=== PATIENT | female | born 1940 | race African-American/Black ===

== ENCOUNTER → 2020-02-19 | Outpatient (CLI) | payer MEDICARE, MEDICAID ==
[~2020-02-19] MED LIST: ASPI-956 PO; ASPI-986 PO; BALS750C6 PO; BENA10TA74 PO; CALC500T62 PO; CHOL200077 PO; CLOB15CR5 TP; EZET10TA13 PO; FAMO20TA8 PO; GARL600T2 PO; MECL25TA3 PO; METF500T3 PO; OMEG1CAP66 PO; OMEP20CA14 PO; POTA10TA19 PO; TRIA1POW10 MC; TURM538C PO; VITA400T9 PO; [UNRECOGNIZED DRUG - CODE] TP
== END | disposition home or self-care (01) ==
LOC: LAB 08:00
PROVIDERS: ATTEND Orthopaedic Surgery
DX: Z03.818 Encounter for observation for suspected exposure to other biological agents ruled out (principal)
CPT/HCPCS: U0003-CS

== ENCOUNTER 2020-02-21 05:19 | Day surgery (SDC) | payer MEDICARE, MEDICAID ==
[~2020-02-21] VITALS: Ht 162.6 cm; Wt 72.6 kg
[~2020-02-21 05:19] MED LIST changes: -ASPI-986 PO; -BALS750C6 PO; -CHOL200077 PO; -FAMO20TA8 PO; -GARL600T2 PO; -OMEG1CAP66 PO; -TURM538C PO; -VITA400T9 PO
[2020-02-21] MEDS ORDERED: LACTATED RINGERS 1,000 ML IV SCH (06:30)
[2020-02-21] MEDS ORDERED: BUPIVACAINE HCL/PF 0.25% (2.5MG/ML) 10ML ONE (06:42)
[2020-02-21] MEDS ORDERED: BACITRACIN 50,000 UNITS/VIAL ONE (06:42)
[2020-02-21 06:45] LABS: INR 1.1; PARTIAL THROMBOPLASTIN TIME 27.5 sec (23.4-31.0); PROTHROMBIN TIME 11.9 sec (9.6-11.0)
[2020-02-21] MEDS ORDERED: VANCOMYCIN HCL 1 GM/VIAL ONE (07:14)
[2020-02-21] MEDS ORDERED: CLINDAMYCIN 900 MG PREMIX 50 ML IV ONE (07:45)
[2020-02-21] MEDS ORDERED: PROPOFOL 200MG/20ML VIAL IV ONE (07:46)
[2020-02-21] MEDS ORDERED: GLYCOPYRROLATE 0.2 MG/ML 2ML VIAL ONE (07:46)
[2020-02-21] MEDS ORDERED: MIDAZOLAM HCL 2 MG/2 ML VIAL ONE (07:46)
[2020-02-21] MEDS ORDERED: METOCLOPRAMIDE HCL 10MG/2ML VIAL ONE (07:46)
[2020-02-21] MEDS ORDERED: FENTANYL CITRATE/PF 50MCG/ML 2ML VIAL ONE (07:46)
[2020-02-21] MEDS ORDERED: LIDOCAINE HCL/PF 1% 10 MG/ML 5ML VIAL ONE (07:46)
[2020-02-21] MEDS ORDERED: ONDANSETRON HCL 4MG/2ML INJ ONE (07:46)
[2020-02-21] MEDS ORDERED: SUCCINYLCHOLINE CHLORIDE 200MG/10ML IV ONE (07:46)
[2020-02-21] MEDS ORDERED: SODIUM CHLORIDE 0.9% 1,000 ML IV ONE (08:33)
[2020-02-21] MEDS ORDERED: ONDANSETRON HCL 4MG/2ML INJ IV PRN (08:45)
[2020-02-21] MEDS ORDERED: HYDROMORPHONE HCL/PF 2MG/ML CPJ IV PRN (08:45)
[2020-02-21] MEDS ORDERED: MEPERIDINE HCL/PF 25MG/ML CPJ IV PRN (08:45)
[2020-02-21] MEDS ORDERED: MORPHINE SULFATE 2 MG/ML CPJ (NOT FOR IM USE) IV PRN (08:45)
[2020-02-21] MEDS ORDERED: HYDROCODONE/ACETAMINOPHEN 5/325MG TABLET PO PRN (09:30)
[2020-02-21] MEDS ORDERED: ASPI-986 PO (09:54)
[2020-02-21 09:57] VITALS: BP 128/61
[2020-02-21] MEDS ORDERED: BALS750C6 PO (10:02)
[2020-02-21] MEDS ORDERED: FAMO20TA8 PO (10:04)
[2020-02-21] MEDS ORDERED: CHOL200077 PO (10:09)
[2020-02-21] MEDS ORDERED: GARL600T2 PO (10:09)
[2020-02-21] MEDS ORDERED: OMEG1CAP66 PO (10:10)
[2020-02-21] MEDS ORDERED: VITA400T9 PO (10:10)
[2020-02-21] MEDS ORDERED: TURM538C PO (10:10)
== END 2020-02-21 12:00 | disposition home or self-care (01) ==
LOC: OR 05:19
PROVIDERS: ATTEND Orthopaedic Surgery
DX: G56.02 Carpal tunnel syndrome, left upper limb (principal); M65.322 Trigger finger, left index finger; G89.29 Other chronic pain; R53.1 Weakness; R20.2 Paresthesia of skin; I10 Essential (primary) hypertension; E11.9 Type 2 diabetes mellitus without complications; E78.5 Hyperlipidemia, unspecified; Z88.0 Allergy status to penicillin; Z88.2 Allergy status to sulfonamides; Z79.82 Long term (current) use of aspirin; Z79.84 Long term (current) use of oral hypoglycemic drugs; Z79.899 Other long term (current) drug therapy; Z98.890 Other specified postprocedural states
CPT/HCPCS: 26055; 36415; 64721; 82962; 85610; 85730; 93005; J2250; J2270; J2405; J2704; J2765; J3010; J3370; J3490; J0330

== ENCOUNTER 2021-06-27 13:44 | Inpatient (IN) | payer MEDICARE, MEDICAID ==
[~2021-06-27] VITALS: Ht 163.8 cm; Wt 74.4 kg
[~2021-06-27 13:44] MED LIST changes: -ASPI-956 PO; +ASPI-986 PO; +BALS750C6 PO; +CHOL200077 PO; +FAMO20TA8 PO; +GARL600T2 PO; +OMEG1CAP66 PO; -OMEP20CA14 PO; -POTA10TA19 PO; -TRIA1POW10 MC; +TURM538C PO; +VITA400T9 PO
[2021-06-27] MEDS ORDERED: MECLIZINE 25MG TABLET PO ONE (18:30)
[2021-06-27 20:17] LABS: BASOPHILS % 0.2 % (0.0-2.0); EOSINOPHILS % 0.5 % (0.0-5.0); HEMATOCRIT. 36.8 % (36.0-48.0); HEMOGLOBIN. 12.2 g/dL (12.0-16.0); LYMPHOCYTES % 28.8 % (20.0-50.0); MEAN CORPUSCULAR HEMOGLOBIN 28.1 pg (28.0-32.0); MEAN CORPUSCULAR VOLUME 84.9 fL (81.0-99.0); MEAN PLATELET VOLUME 8.3 fl (7.4-10.4); MONOCYTES % 7.5 % (2.0-8.0); PLATELET 202 x1000/uL (130-400); RED BLOOD CELL COUNT 4.33 mill/uL (4.2-5.4); RED CELL DISTRIBUTION WIDTH 16.1 % (11.6-14.6)
[2021-06-27 20:18] LABS: CHLORIDE 108 mEq/L (98-107)
[2021-06-27 20:20] LABS: INR 1.1; PROTHROMBIN TIME 12.1 sec (9.6-11.0)
[2021-06-27 20:25] LABS: LDL CHOLESTEROL 143 mg/dL (5-100)
[2021-06-27] MEDS ORDERED: ASPIRIN 81MG TABLET PO SCH (20:30)
[2021-06-27] MEDS ORDERED: LABETALOL HCL 20MG/4ML CARPUJECT IV PRN (20:30)
[2021-06-27] MEDS ORDERED: ACETAMINOPHEN 650MG/20.3ML UDC GT PRN (20:30)
[2021-06-27] MEDS ORDERED: MECLIZINE 12.5MG TABLET PO PRN (20:45)
[2021-06-27 20:57] LABS: CLARITY URINE CLEAR (CLEAR); COLOR URINE YELLOW (YELLOW); KETONES URINE NEGATIVE (NEGATIVE); LEUKOCYTE ESTERASE URINE 1+ (NEGATIVE); NITRITE URINE NEGATIVE (NEGATIVE); OCCULT BLOOD URINE NEGATIVE (NEGATIVE); PH URINE 6.5 (4.5-8.0); PROTEIN URINE NEGATIVE (NEGATIVE); SPECIFIC GRAVITY URINE 1.009 (1.005-1.030); UROBILINOGEN URINE 0.2 E.U./dL (0.2-1.0)
[2021-06-27] MEDS: ATORVASTATIN CALCIUM 20MG TABLET PO SCH (21:00)
[2021-06-27 21:29] LABS: VITAMIN B12 SERUM 1959 pg/mL (211-911)
[2021-06-27] MEDS ORDERED: ASPIRIN 325MG EC TABLET PO NR (23:33)
[2021-06-28] VITALS (7 sets, daily range): BP systolic 132–150; BP diastolic 59–72
[2021-06-28] MEDS ORDERED: AMLO10TA80 PO (03:16)
[2021-06-28] MEDS ORDERED: MAGN250T29 PO (03:25)
[2021-06-28] MEDS ORDERED: CYCL10TA7 PO (03:25)
[2021-06-28] MEDS ORDERED: DOCU-150 PO (03:25)
[2021-06-28 06:53] LABS: HEMATOCRIT 38.7 % (36.0-48.0); HEMOGLOBIN 12.5 g/dL (12.0-16.0); MEAN CORPUSCULAR HEMOGLOBIN 27.8 pg (28.0-32.0); MEAN CORPUSCULAR VOLUME 86.2 fL (81.0-99.0); PLATELET 194 x1000/uL (130-400); RED BLOOD CELL COUNT 4.49 mill/uL (4.2-5.4)
[2021-06-28 07:46] LABS: CHLORIDE 109 mEq/L (98-107)
[2021-06-28 07:54] LABS: TOTAL IRON BINDING CAPACITY 352 ug/dL (250-450)
[2021-06-28] MEDS: ASPIRIN 81MG TABLET PO SCH (08:06)
[2021-06-28 08:17] LABS: FOLIC ACID (FOLATE) SERUM > 20.00 ng/mL (>5.38)
[2021-06-28] MEDS: ENOXAPARIN 40MG/0.4ML SYR SUBCUT SCH (21:00)
[2021-06-28] MEDS: ATORVASTATIN CALCIUM 20MG TABLET PO SCH (21:00)
[2021-06-28] MEDS: AMLODIPINE 5MG TABLET PO SCH (21:37)
[2021-06-29] VITALS: BP 127/59
[2021-06-29 04:00] VITALS: BP 130/58
[2021-06-29 08:00] VITALS: BP 139/59
[2021-06-29] MEDS: IRON SUCROSE COMPLEX 100 MG/5 ML ML IV SCH (09:46)
[2021-06-29] MEDS: ASPIRIN 81MG TABLET PO SCH (09:46)
[2021-06-29] MEDS: AMLODIPINE 5MG TABLET PO SCH ×2 (09:46→20:51)
[2021-06-29] MEDS: FAMOTIDINE 20MG TABLET PO SCH ×2 (09:46→17:26)
[2021-06-29 12:00] VITALS: BP_SYST 118; BP_SYST 125; BP_DIAS 53; BP_DIAS 67
[2021-06-29 16:00] VITALS: BP 133/63
[2021-06-29 20:00] VITALS: BP 154/60
[2021-06-29] MEDS: ATORVASTATIN CALCIUM 20MG TABLET PO SCH (20:51)
[2021-06-29] MEDS: ENOXAPARIN 40MG/0.4ML SYR SUBCUT SCH (20:52)
[2021-06-30] VITALS: BP 146/64
[2021-06-30 04:00] VITALS: BP_SYST 146; BP_SYST 153; BP_SYST 157; BP_DIAS 73; BP_DIAS 75; BP_DIAS 79
[2021-06-30 08:00] VITALS: BP_SYST 125; BP_SYST 132; BP_SYST 140; BP_DIAS 61; BP_DIAS 65; BP_DIAS 70
[2021-06-30] MEDS: IRON SUCROSE COMPLEX 100 MG/5 ML ML IV SCH (08:50)
[2021-06-30] MEDS: ASPIRIN 81MG TABLET PO SCH (08:50)
[2021-06-30] MEDS: FAMOTIDINE 20MG TABLET PO SCH ×2 (08:50→17:00)
[2021-06-30] MEDS: AMLODIPINE 5MG TABLET PO SCH (08:51)
[2021-06-30 12:00] VITALS: BP 124/57
[2021-06-30 15:30] VITALS: BP 124/57
[2021-06-30] MEDS ORDERED: AMLO5TAB88 PO (15:38)
[2021-06-30] MEDS ORDERED: AMLO5TAB88 MT (15:40)
[2021-06-30 16:00] VITALS: BP 117/53
== END 2021-06-30 17:00 | disposition home or self-care (01) | DRG 312 ==
LOC: ER 13:44 → 7EST 20:13 → EDBEDREQ 20:15 → EDBEDREQSVC 20:15 → EDBEDREQTM 20:15 → ENRESERV 23:35
PROVIDERS: ADMIT Family Medicine Adult Medicine; ATTEND Family Medicine Adult Medicine
DX: I95.2 Hypotension due to drugs (principal); D50.9 Iron deficiency anemia, unspecified; H91.91 Unspecified hearing loss, right ear; I10 Essential (primary) hypertension; R00.0 Tachycardia, unspecified; T50.905A Adverse effect of unspecified drugs, medicaments and biological substances, initial encounter; Z86.73 Personal history of transient ischemic attack (TIA), and cerebral infarction without residual deficits; Z88.0 Allergy status to penicillin; Z88.2 Allergy status to sulfonamides; Y92.098 Other place in other non-institutional residence as the place of occurrence of the external cause; Z87.19 Personal history of other diseases of the digestive system; Z86.69 Personal history of other diseases of the nervous system and sense organs
CPT/HCPCS: 36415; 70551; 71045; 80048; 80053; 80076; 81003; 82607; 82746; 83036; 83540; 83550; 83721; 83880; 84484; 85025; 85027; 93005; 93306; 97162; 99285; J1650; J8597

== ENCOUNTER 2021-10-22 11:40 | Inpatient (IN) | payer MEDICARE, MEDICAID ==
[~2021-10-22] VITALS: Ht 162.6 cm; Wt 73.9 kg
[~2021-10-22 11:40] MED LIST changes: +AMLO5TAB88 MT; -BENA10TA74 PO; -CALC500T62 PO; -CLOB15CR5 TP; +CYCL10TA7 PO; +DOCU-150 PO; -EZET10TA13 PO; +MAGN250T29 PO; -METF500T3 PO; -[UNRECOGNIZED DRUG - CODE] TP
[2021-10-22 13:04] VITALS: BP 150/64
[2021-10-22] MEDS ORDERED: IPRATROPIUM/ALBUTEROL 0.5-3(2.5)MG/3ML NEB HHN PRN (14:15)
[2021-10-22] MEDS ORDERED: MAGNESIUM/ALUMINUM HYDROXIDE/SIMETHICONE 30ML UDC PO PRN (14:15)
[2021-10-22] MEDS ORDERED: HYDROCODONE/APAP 7.5/325MG 1 TAB TABLET PO PRN (14:15)
[2021-10-22] MEDS ORDERED: MECLIZINE 25MG TABLET PO PRN (14:15)
[2021-10-22] MEDS ORDERED: ONDANSETRON HCL 4MG/2ML INJ IV PRN (14:15)
[2021-10-22] MEDS ORDERED: NALOXONE HCL 0.4MG/ML VIAL IV PRN (14:30)
[2021-10-22] MEDS: CLOPIDOGREL 75MG TABLET PO SCH (15:13)
[2021-10-22] MEDS: ASCORBIC ACID 500 MG TABLET PO SCH (15:14)
[2021-10-22] MEDS: ASPIRIN 81MG TABLET PO SCH (15:14)
[2021-10-22] MEDS ORDERED: INFLUENZA VACCINE 05/PF 0.5 ML SYRINGE IM ONE (17:00)
[2021-10-22 17:41] LABS: BASOPHILS % 0.4 % (0.0-2.0); EOSINOPHILS % 1.9 % (0.0-5.0); HEMATOCRIT. 41.4 % (36.0-48.0); HEMOGLOBIN. 13.7 g/dL (12.0-16.0); LYMPHOCYTES % 22.7 % (20.0-50.0); MEAN CORPUSCULAR HEMOGLOBIN 28.4 pg (28.0-32.0); MEAN CORPUSCULAR VOLUME 85.9 fL (81.0-99.0); MEAN PLATELET VOLUME 7.7 fl (7.4-10.4); MONOCYTES % 6.6 % (2.0-8.0); NEUTROPHILS % 68.4 % (40.0-76.0); PLATELET 291 x1000/uL (130-400); RED BLOOD CELL COUNT 4.82 mill/uL (4.2-5.4); RED CELL DISTRIBUTION WIDTH 14.6 % (11.6-14.6)
[2021-10-22 17:55] LABS: CHLORIDE 106 mEq/L (98-107)
[2021-10-22 20:00] VITALS: BP 139/81
[2021-10-22] MEDS ORDERED: ENOXAPARIN 40MG/0.4ML SYR SUBCUT SCH (20:00)
[2021-10-22] MEDS: LEVETIRACETAM 500MG TABLET PO SCH (20:54)
[2021-10-22] MEDS: FAMOTIDINE 20MG TABLET PO SCH (20:54)
[2021-10-22] MEDS: ATORVASTATIN CALCIUM 20MG TABLET PO SCH (20:54)
[2021-10-23 06:26] LABS: CLARITY URINE CLEAR (CLEAR); COLOR URINE DARK YELLOW (YELLOW); KETONES URINE TRACE (NEGATIVE); LEUKOCYTE ESTERASE URINE 1+ (NEGATIVE); NITRITE URINE NEGATIVE (NEGATIVE); OCCULT BLOOD URINE NEGATIVE (NEGATIVE); PH URINE 5.5 (4.5-8.0); PROTEIN URINE 1+ (NEGATIVE); SPECIFIC GRAVITY URINE 1.032 (1.005-1.030)
[2021-10-23] MEDS ORDERED: CYAN1TAB43 PO (06:30)
[2021-10-23 07:12] LABS: CHLORIDE 106 mEq/L (98-107)
[2021-10-23 07:18] LABS: BASOPHILS % 0.2 % (0.0-2.0); EOSINOPHILS % 1.8 % (0.0-5.0); HEMATOCRIT. 38.7 % (36.0-48.0); HEMOGLOBIN. 12.9 g/dL (12.0-16.0); LYMPHOCYTES % 26.2 % (20.0-50.0); MEAN CORPUSCULAR HEMOGLOBIN 28.4 pg (28.0-32.0); MEAN CORPUSCULAR VOLUME 84.9 fL (81.0-99.0); MEAN PLATELET VOLUME 7.8 fl (7.4-10.4); MONOCYTES % 6.9 % (2.0-8.0); NEUTROPHILS % 64.9 % (40.0-76.0); PLATELET 288 x1000/uL (130-400); RED BLOOD CELL COUNT 4.56 mill/uL (4.2-5.4); RED CELL DISTRIBUTION WIDTH 14.3 % (11.6-14.6)
[2021-10-23 08:00] VITALS: BP_SYST 167; BP_SYST 177; BP_DIAS 81; BP_DIAS 91
[2021-10-23] MEDS ORDERED: LACTULOSE 20G/30ML UDC PO SCH (09:00)
[2021-10-23] MEDS: HYDROCODONE/ACETAMINOPHEN 5/325MG TABLET PO PRN (09:22)
[2021-10-23] MEDS: ASPIRIN 81MG TABLET PO SCH (09:22)
[2021-10-23] MEDS: LEVETIRACETAM 500MG TABLET PO SCH ×2 (09:22→20:32)
[2021-10-23] MEDS: NITROFURANTOIN 100MG M/M CAPSULE PO SCH ×2 (09:22→20:32)
[2021-10-23] MEDS: ASCORBIC ACID 500 MG TABLET PO SCH (09:23)
[2021-10-23] MEDS: CLOPIDOGREL 75MG TABLET PO SCH (09:23)
[2021-10-23 12:00] VITALS: BP 162/73
[2021-10-23] MEDS: CLONIDINE 0.1MG TABLET PO PRN (13:38)
[2021-10-23 14:10] VITALS: BP_SYST 139; BP_SYST 145; BP_DIAS 73; BP_DIAS 82
[2021-10-23] MEDS: LACTULOSE 20G/30ML UDC PO SCH (17:00)
[2021-10-23 20:00] VITALS: BP 153/68
[2021-10-23] MEDS: ENOXAPARIN 30MG/0.3ML SYR SUBCUT SCH (20:31)
[2021-10-23] MEDS: ATORVASTATIN CALCIUM 20MG TABLET PO SCH (20:31)
[2021-10-23] MEDS: FAMOTIDINE 20MG TABLET PO SCH (20:32)
[2021-10-23] MEDS: AMLODIPINE 5MG TABLET PO SCH (20:33)
[2021-10-24 06:35] LABS: BASOPHILS % 0.4 % (0.0-2.0); EOSINOPHILS % 1.8 % (0.0-5.0); HEMATOCRIT. 38.7 % (36.0-48.0); HEMOGLOBIN. 12.8 g/dL (12.0-16.0); LYMPHOCYTES % 19.8 % (20.0-50.0); MEAN CORPUSCULAR VOLUME 84.8 fL (81.0-99.0); MEAN PLATELET VOLUME 7.9 fl (7.4-10.4); MONOCYTES % 6.7 % (2.0-8.0); NEUTROPHILS % 71.3 % (40.0-76.0); PLATELET 283 x1000/uL (130-400); RED BLOOD CELL COUNT 4.56 mill/uL (4.2-5.4); RED CELL DISTRIBUTION WIDTH 14.6 % (11.6-14.6)
[2021-10-24 06:42] LABS: CHLORIDE 104 mEq/L (98-107)
[2021-10-24 07:04] LABS: FERRITIN 321 ng/mL (10-291)
[2021-10-24 07:18] LABS: VITAMIN B12 SERUM >2000 pg/mL pg/mL (211-911)
[2021-10-24 08:00] VITALS: BP 155/71
[2021-10-24] MEDS: ASPIRIN 81MG TABLET PO SCH (08:54)
[2021-10-24] MEDS: NITROFURANTOIN 100MG M/M CAPSULE PO SCH ×2 (08:54→20:25)
[2021-10-24] MEDS: ASCORBIC ACID 500 MG TABLET PO SCH (08:54)
[2021-10-24] MEDS: LEVETIRACETAM 500MG TABLET PO SCH ×2 (08:54→20:25)
[2021-10-24] MEDS: CLOPIDOGREL 75MG TABLET PO SCH (08:54)
[2021-10-24] MEDS: HYDROCODONE/ACETAMINOPHEN 5/325MG TABLET PO PRN (08:56)
[2021-10-24] MEDS: AMLODIPINE 5MG TABLET PO SCH ×2 (08:56→20:26)
[2021-10-24] MEDS: LACTULOSE 20G/30ML UDC PO SCH (08:59)
[2021-10-24 20:00] VITALS: BP 166/75
[2021-10-24] MEDS: ATORVASTATIN CALCIUM 20MG TABLET PO SCH (20:25)
[2021-10-24] MEDS: ENOXAPARIN 30MG/0.3ML SYR SUBCUT SCH (20:25)
[2021-10-24] MEDS: FAMOTIDINE 20MG TABLET PO SCH (20:25)
[2021-10-24 23:00] VITALS: BP 155/77
[2021-10-25 08:00] VITALS: BP 148/63
[2021-10-25] MEDS: LEVETIRACETAM 500MG TABLET PO SCH ×2 (08:27→21:37)
[2021-10-25] MEDS: ASPIRIN 81MG TABLET PO SCH (08:27)
[2021-10-25] MEDS: CLOPIDOGREL 75MG TABLET PO SCH (08:27)
[2021-10-25] MEDS: NITROFURANTOIN 100MG M/M CAPSULE PO SCH ×2 (08:27→21:39)
[2021-10-25] MEDS: AMLODIPINE 5MG TABLET PO SCH ×2 (08:27→21:37)
[2021-10-25] MEDS: ASCORBIC ACID 500 MG TABLET PO SCH (08:27)
[2021-10-25 20:00] VITALS: BP 138/65
[2021-10-25] MEDS: ATORVASTATIN CALCIUM 20MG TABLET PO SCH (21:36)
[2021-10-25] MEDS: ENOXAPARIN 30MG/0.3ML SYR SUBCUT SCH (21:38)
[2021-10-25] MEDS: FAMOTIDINE 20MG TABLET PO SCH (21:40)
[2021-10-26 08:19] VITALS: BP 131/38
[2021-10-26] MEDS: ASPIRIN 81MG TABLET PO SCH (09:16)
[2021-10-26] MEDS: CLOPIDOGREL 75MG TABLET PO SCH (09:16)
[2021-10-26] MEDS: LEVETIRACETAM 500MG TABLET PO SCH ×2 (09:16→21:27)
[2021-10-26] MEDS: ASCORBIC ACID 500 MG TABLET PO SCH (09:16)
[2021-10-26] MEDS: AMLODIPINE 5MG TABLET PO SCH ×2 (09:17→21:27)
[2021-10-26 20:00] VITALS: BP 137/72
[2021-10-26] MEDS: FAMOTIDINE 20MG TABLET PO SCH (21:24)
[2021-10-26] MEDS: ATORVASTATIN CALCIUM 20MG TABLET PO SCH (21:26)
[2021-10-26] MEDS: ENOXAPARIN 30MG/0.3ML SYR SUBCUT SCH (21:28)
[2021-10-27 07:50] VITALS: BP 140/69
[2021-10-27] MEDS: CLOPIDOGREL 75MG TABLET PO SCH (08:14)
[2021-10-27] MEDS: ASPIRIN 81MG TABLET PO SCH (08:14)
[2021-10-27] MEDS: LEVETIRACETAM 500MG TABLET PO SCH ×2 (08:14→21:22)
[2021-10-27] MEDS: ASCORBIC ACID 500 MG TABLET PO SCH (08:15)
[2021-10-27] MEDS: AMLODIPINE 5MG TABLET PO SCH ×2 (08:15→21:21)
[2021-10-27 20:00] VITALS: BP 137/72
[2021-10-27] MEDS: ATORVASTATIN CALCIUM 20MG TABLET PO SCH (21:21)
[2021-10-27] MEDS: FAMOTIDINE 20MG TABLET PO SCH (21:22)
[2021-10-27] MEDS: ENOXAPARIN 30MG/0.3ML SYR SUBCUT SCH (21:23)
[2021-10-27] MEDS ORDERED: NALOXONE HCL 0.4MG/ML VIAL IV PRN (22:00)
[2021-10-28] MEDS: HYDROCODONE/ACETAMINOPHEN 5/325MG TABLET PO PRN ×2 (05:26→10:31)
[2021-10-28 07:36] LABS: BASOPHILS % 0.5 % (0.0-2.0); EOSINOPHILS % 4.7 % (0.0-5.0); HEMATOCRIT. 40.8 % (36.0-48.0); HEMOGLOBIN. 13.7 g/dL (12.0-16.0); LYMPHOCYTES % 29.1 % (20.0-50.0); MEAN CORPUSCULAR HEMOGLOBIN 28.6 pg (28.0-32.0); MEAN CORPUSCULAR VOLUME 85.1 fL (81.0-99.0); NEUTROPHILS % 56.7 % (40.0-76.0); PLATELET 323 x1000/uL (130-400); RED BLOOD CELL COUNT 4.79 mill/uL (4.2-5.4); RED CELL DISTRIBUTION WIDTH 14.4 % (11.6-14.6)
[2021-10-28 07:48] LABS: CHLORIDE 104 mEq/L (98-107)
[2021-10-28 08:00] VITALS: BP 135/60
[2021-10-28] MEDS: ASCORBIC ACID 500 MG TABLET PO SCH (09:45)
[2021-10-28] MEDS: CLOPIDOGREL 75MG TABLET PO SCH (09:45)
[2021-10-28] MEDS: ASPIRIN 81MG TABLET PO SCH (09:45)
[2021-10-28] MEDS: LEVETIRACETAM 500MG TABLET PO SCH ×2 (09:45→20:51)
[2021-10-28] MEDS: AMLODIPINE 5MG TABLET PO SCH ×2 (09:46→20:52)
[2021-10-28 20:00] VITALS: BP 156/68
[2021-10-28] MEDS: FAMOTIDINE 20MG TABLET PO SCH (20:51)
[2021-10-28] MEDS: ATORVASTATIN CALCIUM 20MG TABLET PO SCH (20:51)
[2021-10-28] MEDS: ENOXAPARIN 30MG/0.3ML SYR SUBCUT SCH (20:51)
[2021-10-29 08:00] VITALS: BP 148/56
[2021-10-29] MEDS: AMLODIPINE 5MG TABLET PO SCH ×2 (09:15→21:24)
[2021-10-29] MEDS: CLOPIDOGREL 75MG TABLET PO SCH (09:16)
[2021-10-29] MEDS: ASPIRIN 81MG TABLET PO SCH (09:16)
[2021-10-29] MEDS: LEVETIRACETAM 500MG TABLET PO SCH ×2 (09:16→21:23)
[2021-10-29] MEDS: ASCORBIC ACID 500 MG TABLET PO SCH (09:16)
[2021-10-29] MEDS: DOCUSATE SODIUM 100MG CAPSULE PO PRN (17:26)
[2021-10-29] MEDS: HYDROCODONE/ACETAMINOPHEN 5/325MG TABLET PO PRN (18:57)
[2021-10-29 20:00] VITALS: BP 165/74
[2021-10-29] MEDS: ENOXAPARIN 30MG/0.3ML SYR SUBCUT SCH (21:23)
[2021-10-29] MEDS: ATORVASTATIN CALCIUM 20MG TABLET PO SCH (21:24)
[2021-10-29] MEDS: FAMOTIDINE 20MG TABLET PO SCH (21:24)
[2021-10-30 07:53] VITALS: BP 142/79
[2021-10-30] MEDS: AMLODIPINE 5MG TABLET PO SCH ×2 (09:48→20:21)
[2021-10-30] MEDS: ASCORBIC ACID 500 MG TABLET PO SCH (09:48)
[2021-10-30] MEDS: CLOPIDOGREL 75MG TABLET PO SCH (09:48)
[2021-10-30] MEDS: LEVETIRACETAM 500MG TABLET PO SCH ×2 (09:48→20:21)
[2021-10-30] MEDS: ASPIRIN 81MG TABLET PO SCH (09:48)
[2021-10-30 20:00] VITALS: BP 173/73
[2021-10-30] MEDS: ATORVASTATIN CALCIUM 20MG TABLET PO SCH (20:20)
[2021-10-30] MEDS: ENOXAPARIN 30MG/0.3ML SYR SUBCUT SCH (20:20)
[2021-10-30] MEDS: FAMOTIDINE 20MG TABLET PO SCH (20:21)
[2021-10-30] MEDS: CLONIDINE 0.1MG TABLET PO PRN (20:24)
[2021-10-31 08:00] VITALS: BP 143/66
[2021-10-31] MEDS: LEVETIRACETAM 500MG TABLET PO SCH ×2 (09:39→20:35)
[2021-10-31] MEDS: ASPIRIN 81MG TABLET PO SCH (09:40)
[2021-10-31] MEDS: AMLODIPINE 5MG TABLET PO SCH ×2 (09:42→20:35)
[2021-10-31] MEDS: ASCORBIC ACID 500 MG TABLET PO SCH (09:50)
[2021-10-31] MEDS: CLOPIDOGREL 75MG TABLET PO SCH (09:50)
[2021-10-31 14:07] LABS: 25-HYDROXY VITAMIN D3 41 ng/mL (.)
[2021-10-31 20:00] VITALS: BP 161/74
[2021-10-31] MEDS: ENOXAPARIN 30MG/0.3ML SYR SUBCUT SCH (20:35)
[2021-10-31] MEDS: FAMOTIDINE 20MG TABLET PO SCH (20:35)
[2021-10-31] MEDS: ATORVASTATIN CALCIUM 20MG TABLET PO SCH (20:35)
[2021-10-31 22:00] VITALS: BP 126/53
[2021-11-01 07:02] LABS: BASOPHILS % 0.4 % (0.0-2.0); EOSINOPHILS % 4.8 % (0.0-5.0); HEMATOCRIT. 36.9 % (36.0-48.0); HEMOGLOBIN. 12.2 g/dL (12.0-16.0); LYMPHOCYTES % 26.5 % (20.0-50.0); MEAN CORPUSCULAR HEMOGLOBIN 28.3 pg (28.0-32.0); MEAN CORPUSCULAR VOLUME 85.6 fL (81.0-99.0); MEAN PLATELET VOLUME 7.9 fl (7.4-10.4); MONOCYTES % 11.2 % (2.0-8.0); NEUTROPHILS % 57.1 % (40.0-76.0); PLATELET 284 x1000/uL (130-400); RED BLOOD CELL COUNT 4.31 mill/uL (4.2-5.4); RED CELL DISTRIBUTION WIDTH 14.4 % (11.6-14.6)
[2021-11-01 08:00] VITALS: BP 131/71
[2021-11-01 08:03] LABS: CHLORIDE 103 mEq/L (98-107)
[2021-11-01] MEDS: ASCORBIC ACID 500 MG TABLET PO SCH (09:34)
[2021-11-01] MEDS: CLOPIDOGREL 75MG TABLET PO SCH (09:34)
[2021-11-01] MEDS: LEVETIRACETAM 500MG TABLET PO SCH ×2 (09:35→20:52)
[2021-11-01] MEDS: ASPIRIN 81MG TABLET PO SCH (09:35)
[2021-11-01] MEDS: AMLODIPINE 5MG TABLET PO SCH ×2 (09:35→20:52)
[2021-11-01] MEDS: ERGOCALCIFEROL 50000UNITS CAPSULE PO SCH (13:21)
[2021-11-01] MEDS: HYDROCODONE/ACETAMINOPHEN 5/325MG TABLET PO PRN (15:58)
[2021-11-01 20:00] VITALS: BP 150/56
[2021-11-01] MEDS: ENOXAPARIN 30MG/0.3ML SYR SUBCUT SCH (20:52)
[2021-11-01] MEDS: ATORVASTATIN CALCIUM 20MG TABLET PO SCH (20:52)
[2021-11-01] MEDS: FAMOTIDINE 20MG TABLET PO SCH (20:52)
[2021-11-01] MEDS: NA PHOS,M-B/NA PHOS,DI-BA ENEMA 118ML PR PRN (21:12)
[2021-11-02 07:35] VITALS: BP 108/72
[2021-11-02] MEDS: ASPIRIN 81MG TABLET PO SCH (09:04)
[2021-11-02] MEDS: CLOPIDOGREL 75MG TABLET PO SCH (09:04)
[2021-11-02] MEDS: ASCORBIC ACID 500 MG TABLET PO SCH (09:04)
[2021-11-02] MEDS: LEVETIRACETAM 500MG TABLET PO SCH ×2 (09:04→21:23)
[2021-11-02] MEDS: AMLODIPINE 5MG TABLET PO SCH ×2 (09:05→21:29)
[2021-11-02] MEDS ORDERED: NALOXONE HCL 0.4MG/ML VIAL IV PRN (15:15)
[2021-11-02 20:00] VITALS: BP_SYST 106; BP_SYST 166; BP_DIAS 166; BP_DIAS 75
[2021-11-02] MEDS: ACETAMINOPHEN 325MG TABLET PO PRN (21:22)
[2021-11-02] MEDS: ATORVASTATIN CALCIUM 20MG TABLET PO SCH (21:23)
[2021-11-02] MEDS: FAMOTIDINE 20MG TABLET PO SCH (21:23)
[2021-11-02] MEDS: ENOXAPARIN 30MG/0.3ML SYR SUBCUT SCH (21:23)
[2021-11-03 08:00] VITALS: BP 143/82
[2021-11-03] MEDS: ASCORBIC ACID 500 MG TABLET PO SCH (09:25)
[2021-11-03] MEDS: ASPIRIN 81MG TABLET PO SCH (09:25)
[2021-11-03] MEDS: CLOPIDOGREL 75MG TABLET PO SCH (09:25)
[2021-11-03] MEDS: AMLODIPINE 5MG TABLET PO SCH ×2 (09:26→20:55)
[2021-11-03] MEDS: LEVETIRACETAM 500MG TABLET PO SCH ×2 (09:28→20:55)
[2021-11-03 20:00] VITALS: BP 122/69
[2021-11-03] MEDS: ATORVASTATIN CALCIUM 20MG TABLET PO SCH (20:57)
[2021-11-03] MEDS: HYDROCODONE/ACETAMINOPHEN 5/325MG TABLET PO PRN (20:57)
[2021-11-03] MEDS: FAMOTIDINE 20MG TABLET PO SCH (20:57)
[2021-11-03] MEDS: ENOXAPARIN 30MG/0.3ML SYR SUBCUT SCH (20:57)
[2021-11-04 08:00] VITALS: BP 150/76
[2021-11-04] MEDS: ASCORBIC ACID 500 MG TABLET PO SCH (09:32)
[2021-11-04] MEDS: AMLODIPINE 5MG TABLET PO SCH ×2 (09:32→21:00)
[2021-11-04] MEDS: CLOPIDOGREL 75MG TABLET PO SCH (09:33)
[2021-11-04] MEDS: ASPIRIN 81MG TABLET PO SCH (09:35)
[2021-11-04] MEDS: LEVETIRACETAM 500MG TABLET PO SCH ×2 (09:35→21:00)
[2021-11-04] MEDS: HYDROCODONE/ACETAMINOPHEN 5/325MG TABLET PO PRN (19:05)
[2021-11-04 20:00] VITALS: BP 148/67
[2021-11-04] MEDS: ATORVASTATIN CALCIUM 20MG TABLET PO SCH (21:00)
[2021-11-04] MEDS: FAMOTIDINE 20MG TABLET PO SCH (21:01)
[2021-11-04] MEDS: ENOXAPARIN 30MG/0.3ML SYR SUBCUT SCH (21:06)
[2021-11-05 06:43] LABS: BASOPHILS % 0.3 % (0.0-2.0); EOSINOPHILS % 3.1 % (0.0-5.0); HEMATOCRIT. 38.8 % (36.0-48.0); LYMPHOCYTES % 32.9 % (20.0-50.0); MEAN CORPUSCULAR HEMOGLOBIN 28.1 pg (28.0-32.0); MEAN PLATELET VOLUME 8.1 fl (7.4-10.4); MONOCYTES % 9.6 % (2.0-8.0); NEUTROPHILS % 54.1 % (40.0-76.0); PLATELET 278 x1000/uL (130-400); RED BLOOD CELL COUNT 4.62 mill/uL (4.2-5.4); RED CELL DISTRIBUTION WIDTH 14.6 % (11.6-14.6)
[2021-11-05 06:52] LABS: CHLORIDE 102 mEq/L (98-107)
[2021-11-05 08:00] VITALS: BP 142/57
[2021-11-05] MEDS: AMLODIPINE 5MG TABLET PO SCH ×2 (08:55→20:44)
[2021-11-05] MEDS: LEVETIRACETAM 500MG TABLET PO SCH ×2 (08:56→20:44)
[2021-11-05] MEDS: ASCORBIC ACID 500 MG TABLET PO SCH (08:56)
[2021-11-05] MEDS: ASPIRIN 81MG TABLET PO SCH (08:56)
[2021-11-05] MEDS: CLOPIDOGREL 75MG TABLET PO SCH (08:56)
[2021-11-05] MEDS ORDERED: POTASSIUM CHLORIDE 20MEQ TABLET SR PO NR (09:30)
[2021-11-05 20:00] VITALS: BP 155/71
[2021-11-05] MEDS: FAMOTIDINE 20MG TABLET PO SCH (20:44)
[2021-11-05] MEDS: ATORVASTATIN CALCIUM 20MG TABLET PO SCH (20:44)
[2021-11-05] MEDS: ENOXAPARIN 30MG/0.3ML SYR SUBCUT SCH (20:45)
[2021-11-06 06:52] LABS: CHLORIDE 104 mEq/L (98-107)
[2021-11-06 07:42] VITALS: BP 133/66
[2021-11-06] MEDS: LEVETIRACETAM 500MG TABLET PO SCH ×2 (10:15→21:03)
[2021-11-06] MEDS: ASCORBIC ACID 500 MG TABLET PO SCH (10:15)
[2021-11-06] MEDS: CLOPIDOGREL 75MG TABLET PO SCH (10:16)
[2021-11-06] MEDS: AMLODIPINE 5MG TABLET PO SCH ×2 (10:16→21:03)
[2021-11-06] MEDS: ASPIRIN 81MG TABLET PO SCH (10:16)
[2021-11-06] MEDS ORDERED: LACTULOSE 20G/30ML UDC PO PRN (12:15)
[2021-11-06] MEDS: POLYETHYLENE GLYCOL 3350 (17GM) 1 DOSE PACK PO SCH (12:15)
[2021-11-06 20:00] VITALS: BP 130/68
[2021-11-06] MEDS: ATORVASTATIN CALCIUM 20MG TABLET PO SCH (21:02)
[2021-11-06] MEDS: FAMOTIDINE 20MG TABLET PO SCH (21:02)
[2021-11-06] MEDS: ENOXAPARIN 30MG/0.3ML SYR SUBCUT SCH (21:03)
[2021-11-07 08:00] VITALS: BP 141/63
[2021-11-07] MEDS: ASCORBIC ACID 500 MG TABLET PO SCH (09:57)
[2021-11-07] MEDS: LEVETIRACETAM 500MG TABLET PO SCH ×2 (09:58→20:38)
[2021-11-07] MEDS: CLOPIDOGREL 75MG TABLET PO SCH (09:58)
[2021-11-07] MEDS: AMLODIPINE 5MG TABLET PO SCH ×2 (09:58→20:40)
[2021-11-07] MEDS: ASPIRIN 81MG TABLET PO SCH (09:58)
[2021-11-07] MEDS: POLYETHYLENE GLYCOL 3350 (17GM) 1 DOSE PACK PO SCH (09:59)
[2021-11-07] MEDS: NA PHOS,M-B/NA PHOS,DI-BA ENEMA 118ML PR PRN (17:53)
[2021-11-07 20:00] VITALS: BP 157/74
[2021-11-07] MEDS: FAMOTIDINE 20MG TABLET PO SCH (20:39)
[2021-11-07] MEDS: ENOXAPARIN 30MG/0.3ML SYR SUBCUT SCH (20:39)
[2021-11-07] MEDS: ATORVASTATIN CALCIUM 20MG TABLET PO SCH (20:39)
[2021-11-08 08:00] VITALS: BP 138/77
[2021-11-08 08:46] LABS: CHLORIDE 102 mEq/L (98-107)
[2021-11-08] MEDS: LEVETIRACETAM 500MG TABLET PO SCH ×2 (08:46→22:11)
[2021-11-08] MEDS: ASCORBIC ACID 500 MG TABLET PO SCH (08:46)
[2021-11-08] MEDS: AMLODIPINE 5MG TABLET PO SCH ×2 (08:47→22:14)
[2021-11-08] MEDS: CLOPIDOGREL 75MG TABLET PO SCH (08:47)
[2021-11-08] MEDS: POLYETHYLENE GLYCOL 3350 (17GM) 1 DOSE PACK PO SCH (08:47)
[2021-11-08] MEDS: ASPIRIN 81MG TABLET PO SCH (08:47)
[2021-11-08] MEDS: ERGOCALCIFEROL 50000UNITS CAPSULE PO SCH (08:47)
[2021-11-08 20:00] VITALS: BP 131/65
[2021-11-08] MEDS: ATORVASTATIN CALCIUM 20MG TABLET PO SCH (21:00)
[2021-11-08] MEDS: FAMOTIDINE 20MG TABLET PO SCH (22:12)
[2021-11-08] MEDS: ENOXAPARIN 30MG/0.3ML SYR SUBCUT SCH (22:15)
[2021-11-09 08:00] VITALS: BP 133/61
[2021-11-09] MEDS: ASCORBIC ACID 500 MG TABLET PO SCH (10:12)
[2021-11-09] MEDS: LEVETIRACETAM 500MG TABLET PO SCH ×2 (10:12→21:42)
[2021-11-09] MEDS: AMLODIPINE 5MG TABLET PO SCH ×2 (10:13→21:42)
[2021-11-09] MEDS: ASPIRIN 81MG TABLET PO SCH (10:16)
[2021-11-09] MEDS: POLYETHYLENE GLYCOL 3350 (17GM) 1 DOSE PACK PO SCH (10:17)
[2021-11-09] MEDS: CLOPIDOGREL 75MG TABLET PO SCH (10:18)
[2021-11-09 20:32] VITALS: BP 135/71
[2021-11-09] MEDS: ATORVASTATIN CALCIUM 20MG TABLET PO SCH (21:41)
[2021-11-09] MEDS: FAMOTIDINE 20MG TABLET PO SCH (21:41)
[2021-11-09] MEDS: ENOXAPARIN 30MG/0.3ML SYR SUBCUT SCH (21:42)
[2021-11-09] MEDS: ACETAMINOPHEN 325MG TABLET PO PRN (22:50)
[2021-11-10 07:19] LABS: BASOPHILS % 0.3 % (0.0-2.0); EOSINOPHILS % 1.7 % (0.0-5.0); HEMATOCRIT. 37.2 % (36.0-48.0); HEMOGLOBIN. 12.3 g/dL (12.0-16.0); LYMPHOCYTES % 30.6 % (20.0-50.0); MEAN CORPUSCULAR HEMOGLOBIN 28.3 pg (28.0-32.0); MEAN CORPUSCULAR VOLUME 85.4 fL (81.0-99.0); MEAN PLATELET VOLUME 8.1 fl (7.4-10.4); MONOCYTES % 10.3 % (2.0-8.0); NEUTROPHILS % 57.1 % (40.0-76.0); PLATELET 223 x1000/uL (130-400); RED BLOOD CELL COUNT 4.36 mill/uL (4.2-5.4); RED CELL DISTRIBUTION WIDTH 14.9 % (11.6-14.6)
[2021-11-10 08:00] VITALS: BP 129/62
[2021-11-10 08:27] LABS: CHLORIDE 104 mEq/L (98-107)
[2021-11-10] MEDS: POLYETHYLENE GLYCOL 3350 (17GM) 1 DOSE PACK PO SCH (09:00)
[2021-11-10] MEDS: CLOPIDOGREL 75MG TABLET PO SCH (09:12)
[2021-11-10] MEDS: ASPIRIN 81MG TABLET PO SCH (09:13)
[2021-11-10] MEDS: AMLODIPINE 5MG TABLET PO SCH ×2 (09:13→22:02)
[2021-11-10] MEDS: ASCORBIC ACID 500 MG TABLET PO SCH (09:13)
[2021-11-10] MEDS: LEVETIRACETAM 500MG TABLET PO SCH ×2 (09:13→22:01)
[2021-11-10 20:00] VITALS: BP 130/47
[2021-11-10] MEDS: FAMOTIDINE 20MG TABLET PO SCH (22:01)
[2021-11-10] MEDS: ATORVASTATIN CALCIUM 20MG TABLET PO SCH (22:02)
[2021-11-10] MEDS: ACETAMINOPHEN 325MG TABLET PO PRN (22:03)
[2021-11-10] MEDS: ENOXAPARIN 30MG/0.3ML SYR SUBCUT SCH (22:04)
[2021-11-11 08:00] VITALS: BP 130/62
[2021-11-11] MEDS: ASPIRIN 81MG TABLET PO SCH (09:12)
[2021-11-11] MEDS: CLOPIDOGREL 75MG TABLET PO SCH (09:12)
[2021-11-11] MEDS: ASCORBIC ACID 500 MG TABLET PO SCH (09:12)
[2021-11-11] MEDS: LEVETIRACETAM 500MG TABLET PO SCH ×2 (09:12→21:43)
[2021-11-11] MEDS: AMLODIPINE 5MG TABLET PO SCH ×2 (09:13→21:42)
[2021-11-11] MEDS: POLYETHYLENE GLYCOL 3350 (17GM) 1 DOSE PACK PO SCH (10:23)
[2021-11-11 20:00] VITALS: BP 162/68
[2021-11-11] MEDS: ATORVASTATIN CALCIUM 20MG TABLET PO SCH (21:42)
[2021-11-11] MEDS: FAMOTIDINE 20MG TABLET PO SCH (21:43)
[2021-11-11] MEDS: ENOXAPARIN 30MG/0.3ML SYR SUBCUT SCH (21:43)
[2021-11-11] MEDS: ACETAMINOPHEN 325MG TABLET PO PRN (21:45)
[2021-11-12 08:00] VITALS: BP 135/74
[2021-11-12] MEDS: AMLODIPINE 5MG TABLET PO SCH ×2 (08:46→21:39)
[2021-11-12] MEDS: ASCORBIC ACID 500 MG TABLET PO SCH (08:46)
[2021-11-12] MEDS: ASPIRIN 81MG TABLET PO SCH (08:46)
[2021-11-12] MEDS: CLOPIDOGREL 75MG TABLET PO SCH (08:46)
[2021-11-12] MEDS: LEVETIRACETAM 500MG TABLET PO SCH ×2 (08:46→21:49)
[2021-11-12] MEDS: POLYETHYLENE GLYCOL 3350 (17GM) 1 DOSE PACK PO SCH (08:47)
[2021-11-12 11:22] LABS: BASOPHILS % 0.3 % (0.0-2.0); EOSINOPHILS % 1.4 % (0.0-5.0); HEMATOCRIT. 37.7 % (36.0-48.0); HEMOGLOBIN. 12.4 g/dL (12.0-16.0); LYMPHOCYTES % 34.5 % (20.0-50.0); MEAN CORPUSCULAR VOLUME 85.5 fL (81.0-99.0); MEAN PLATELET VOLUME 7.6 fl (7.4-10.4); MONOCYTES % 9.4 % (2.0-8.0); NEUTROPHILS % 54.4 % (40.0-76.0); PLATELET 221 x1000/uL (130-400); RED BLOOD CELL COUNT 4.41 mill/uL (4.2-5.4); RED CELL DISTRIBUTION WIDTH 14.6 % (11.6-14.6)
[2021-11-12 11:32] LABS: CHLORIDE 103 mEq/L (98-107)
[2021-11-12 16:16] LABS: CLARITY URINE CLOUDY (CLEAR); COLOR URINE YELLOW (YELLOW); KETONES URINE NEGATIVE (NEGATIVE); LEUKOCYTE ESTERASE URINE 2+ (NEGATIVE); NITRITE URINE NEGATIVE (NEGATIVE); OCCULT BLOOD URINE NEGATIVE (NEGATIVE); PROTEIN URINE NEGATIVE (NEGATIVE)
[2021-11-12 20:00] VITALS: BP 164/79
[2021-11-12] MEDS: FAMOTIDINE 20MG TABLET PO SCH (21:38)
[2021-11-12] MEDS: ATORVASTATIN CALCIUM 20MG TABLET PO SCH (21:38)
[2021-11-12] MEDS: ENOXAPARIN 30MG/0.3ML SYR SUBCUT SCH (21:39)
[2021-11-13 08:00] VITALS: BP 132/75
[2021-11-13] MEDS: ASCORBIC ACID 500 MG TABLET PO SCH (08:54)
[2021-11-13] MEDS: LEVETIRACETAM 500MG TABLET PO SCH ×2 (08:54→20:29)
[2021-11-13] MEDS: CLOPIDOGREL 75MG TABLET PO SCH (08:54)
[2021-11-13] MEDS: AMLODIPINE 5MG TABLET PO SCH ×2 (08:54→20:31)
[2021-11-13] MEDS: POLYETHYLENE GLYCOL 3350 (17GM) 1 DOSE PACK PO SCH (08:54)
[2021-11-13] MEDS: ASPIRIN 81MG TABLET PO SCH (08:54)
[2021-11-13 20:00] VITALS: BP 123/54
[2021-11-13] MEDS: ATORVASTATIN CALCIUM 20MG TABLET PO SCH (20:29)
[2021-11-13] MEDS: ENOXAPARIN 30MG/0.3ML SYR SUBCUT SCH (20:29)
[2021-11-13] MEDS: FAMOTIDINE 20MG TABLET PO SCH (20:29)
[2021-11-14 08:00] VITALS: BP 154/70
[2021-11-14] MEDS: POLYETHYLENE GLYCOL 3350 (17GM) 1 DOSE PACK PO SCH (09:00)
[2021-11-14] MEDS: DOCUSATE SODIUM 100MG CAPSULE PO PRN (09:26)
[2021-11-14] MEDS: ASCORBIC ACID 500 MG TABLET PO SCH (09:26)
[2021-11-14] MEDS: LEVETIRACETAM 500MG TABLET PO SCH (09:26)
[2021-11-14] MEDS: AMLODIPINE 5MG TABLET PO SCH (09:27)
[2021-11-14] MEDS: CLOPIDOGREL 75MG TABLET PO SCH (09:27)
[2021-11-14] MEDS: ASPIRIN 81MG TABLET PO SCH (09:27)
[2021-11-14 12:38] VITALS: BP 144/70
== END 2021-11-14 15:11 | disposition home health service (06) | DRG 56 ==
PROVIDERS: ADMIT Physical Medicine & Rehabilitation Spinal Cord Injury Medicine; ATTEND Hospitalist
DX: I69.354 Hemiplegia and hemiparesis following cerebral infarction affecting left non-dominant side (principal); I63.521 Cerebral infarction due to unspecified occlusion or stenosis of right anterior cerebral artery; G93.40 Encephalopathy, unspecified; K51.90 Ulcerative colitis, unspecified, without complications; N39.0 Urinary tract infection, site not specified; J98.11 Atelectasis; R41.4 Neurologic neglect syndrome; E72.20 Disorder of urea cycle metabolism, unspecified; I10 Essential (primary) hypertension; G62.9 Polyneuropathy, unspecified; E78.5 Hyperlipidemia, unspecified; E78.00 Pure hypercholesterolemia, unspecified; H53.462 Homonymous bilateral field defects, left side; M48.061 Spinal stenosis, lumbar region without neurogenic claudication; M51.26 Other intervertebral disc displacement, lumbar region; E55.9 Vitamin D deficiency, unspecified; E87.6 Hypokalemia; F01.50 Vascular dementia, unspecified severity, without behavioral disturbance, psychotic disturbance, mood disturbance, and anxiety; F32.A Depression, unspecified; F41.9 Anxiety disorder, unspecified; R53.81 Other malaise; R73.9 Hyperglycemia, unspecified; R13.10 Dysphagia, unspecified; Z79.899 Other long term (current) drug therapy; Z88.0 Allergy status to penicillin; Z88.2 Allergy status to sulfonamides; I69.391 Dysphagia following cerebral infarction; I69.320 Aphasia following cerebral infarction; I69.392 Facial weakness following cerebral infarction; Z87.39 Personal history of other diseases of the musculoskeletal system and connective tissue; U09.9 Post COVID-19 condition, unspecified
CPT/HCPCS: 36415; 70551; 71046; 80048; 80053; 81003; 82140; 82306; 82607; 82728; 82746; 84134; 84443; 85025; 92523; 92610; 93970; 97110; 97112; 97163; 97167; 97530; 97535; A4565; A6261; J1650